=== PATIENT | female | born 1995 | race Caucasian/White ===

== ENCOUNTER 2017-08-02 18:37 | Inpatient (IN) ==
[2017-08-02 15:48] LABS: Amphetamine Screen,Urine Negative ng/mL (Cutoff=1000); Barbiturate Screen,Urine Negative ng/mL (Cutoff=200); Benzodiazepines Screen,Urine Negative ng/mL (Cutoff=200); Cannabinoid Screen,Urine Negative ng/mL (Cutoff = 50); Cocaine Screen,Urine Negative ng/mL (Cutoff= 300); Opiate Screen,Urine Negative ng/mL (Cutoff=300); Phencyclidine Screen,Urine Negative ng/mL (Cutoff=25)
[~2017-08-02 18:37] MED LIST: *HR* Nalbuphine 20 MG/ML AMPUL IVP PRN; Famotidine 20 MG/2 ML VIAL IVP PRN; Metoclopramide 10 MG/2 ML VIAL IVP PRN; Naloxone 0.4 MG/ML INJ IVP PRN
--- NOTE | 2017-08-02 18:37 | OB/GYN History & Physical ---
Date of Encounter: 08/02/17 Time of Encounter: 18:33 Assessment and Plan (1) Spontaneous onset of labor Current visit: Yes Status: Acute Admit to labor and delivery for expectant management -Epidural when requested -GBS negative -anticipate -IV fluids -CLD and ambulate -intermittent monitoring (2) 38 weeks gestation of Current visit: Yes Status: Acute See above History of Present Illness Chief complaint: Contractions HPI: Ms. Mcgrath is a 22 year old female with PMHx of tobacco abuse presents to labor and delivery complaining of vaginal leaking of fluid/discharge. Patient is 38 weeks and 2 days. Patient reports good movement and contractions approximately 5 minutes apart. Patient denies any abdominal pain or painful contractions, however, she states she is feeling "something." Patient is resting comfortably. She denies any headache, RUQ pain, bleeding per vagina, visual disturbances, fever, chills, nausea or vomitting. She denies dysuria or diarrhea. She expresses interest in epidural and admission to the hospital for delivery. Her main complaint is that of heartburn. 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 She sought recovery prior to knowing she was . She has had never had a positive UDS since seeking care. Patient demonstrates continued commitment to recovery. 136/84, 82, 36.5 celsius Baseline FHR 120 15x15 accelerations with moderate variability, Contractions q2- 3 minutes per tocometer O+ GBS negative HCV/HIV negative HSV antibody positive, patient denies any history of break out Rubella Antibody Reactive Past Med Surg Social Fam HX - Past Medical History Attestation: Yes The following information was validated with the patient. 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 ) - Past Surgical History Surgical History: no surgical history - Social History Smoking Status: Current every day smoker Packs per day: 4 cig a day Smokeless Tobacco Status: No Alcohol use: none Drug use: cocaine, marijuana Activity Level: Independent ambulation Recent Out of Country Travel Within the Last 8 Weeks: No - Family History Paternal Grandmother Adopted: No Living Status: Still Living Hx Family Cardiac Disorders: No Hx Family Respiratory Disorders: No Hx Family Cancer: Yes (Breast) Hx Family GI Disorders: No Hx Family Genitourinary Disorders: No Hx Family Endocrine Disorder: No Hx Family Musculoskeletal Disorders: No Hx Family Neuromuscular Disorders: No Hx Family Neurologic Disorders: No Hx Family HEENT Disorders: No Hx Family Autoimmune Disorders: No Hx Family Reproductive Disorders: No Hx Family Psychosocial Disorders: No Hx Family Medical Disorders: No Obstetrical History - Pregnancies : 1 Para: 0 Term: 0 : 0 Ab's: 0 Livin Medications and Allergies Formula Tablet 08/02/17 [History] 3 Allergy/AdvReac Type Severity Reaction Status Date / Time No Known Allergies Allergy Verified 08/02/17 15:48 Review of System OB All systems PM: reviewed and no additional remarkable complaints except as stated - Constitutional Constitutional ROS IM: as per HPI, no anorexia, no chills, no fever(s) - Cardiovascular Cardiovascular: as per HPI, no chest pain, no chest pain at rest, no chest pain with activity, no claudication, no dyspnea on exertion, no lightheadedness, no rapid heart rate - Respiratory Respiratory: as per HPI, no cough, no dyspnea, no dyspnea on exertion - Gastrointestinal Gastrointestinal: as per HPI, heartburn, no abdominal pain, no hematemesis, no hematochezia - Genitourinary Genitourinary: as per HPI, vaginal discharge, no difficulty urinating, no difficulty voiding, no urinary frequency, no urinary urgency Exam - Constitutional Constitutional: well developed, well nourished, no acute distress - HEENT HEENT: Mucus Membranes Moist - Lungs Respiratory exam: CTAB - Cardiovascular Cardiovascular exam: RRR, +S1, +S2 - Abdomen Abdomen: Present: bowel sounds normal, gravid, non tender - Extremities Extremities exam: normal inspection Deep Tendon Reflex Grade: 2+ Normal - Cervix Dilation: 5 (per Wire Puller) Effacement: 70 (per Wire Puller) Station: -1 - Comments Comments: Please see HPI for vitals and NST Results Result Diagrams: 08/02/17 18:55 All other labs normal. - VTE Reasons for not Prescribing Prophylaxis: Treatment not Indicated - Low risk for VTE
[2017-08-02] MEDS ORDERED: Mag Hydrox/Al Hydrox/Simeth 30 ML UDC PO PRN (18:42)
[2017-08-02] MEDS ORDERED: Ringers Solution, Lactated 1,000 ML IVC SCH (18:45)
[2017-08-02 19:09] LABS: Basophils % 0.3 %; Eosinophils # 0.1 K/mcL (0.0-0.6); Eosinophils % 1.1 %; Hematocrit 35.3 % (35.3-44.9); Hemoglobin 12.5 g/dL (11.5-15.4); Immature Granulocytes % 1.3 % (0-4); Lymphocytes # 2.2 K/mcL (0.6-4.6); Lymphocytes % 18.4 %; Mean Corpuscular HGB Conc 35.4 g/dL (31.6-35.5); Mean Corpuscular Hemoglobin 30.8 pg (28.0-33.3); Mean Corpuscular Volume 86.9 fL (83.0-100.0); Monocytes % 8.3 %; Neutrophils # 8.4 K/mcL (1.6-8.9); Platelet Count 180 K/mcL (140-400); Red Blood Count 4.06 M/mcL (3.82-4.97); Red Cell Distribution Width 13.3 % (11.5-14.5); Segmented Neutrophils % 70.6 %
--- NOTE | 2017-08-02 19:46 | Anesthesia Evaluation PreOp ---
Date of Encounter: 08/02/17 Time of Encounter: 19:44 - Past History Planned Operation: LIZ Cardiac History: Denies any Significant Hx Pulmonary History: Smoker (1/2 ppd), Pack/yr (5) BIOSTATISTICS MANAGER History: Seizures (last seizure 10 years) Other Medical History: GERD Anesthesia History: No Prior Anesthetic Complications, Past Anesthesia (wisdom teeth) : Yes Test: Positive Alcohol Use: none Drug use: cocaine (last use november 2016), marijuana Medications and Allergies Formula Tablet 08/02/17 [History] 3 Allergy/AdvReac Type Severity Reaction Status Date / Time No Known Allergies Allergy Verified 08/02/17 15:48 - Meds/Allergy Pre-op Review Medications Reviewed: Yes Allergies Reviewed: Yes Beta Blockers on Current Med List: No Anesthesia Results - Labs 08/02/17 18:55 Anesthesia Exam 120/80 86 16 97.7 fht 120 Height: 5'2" Weight: 72 kg NPO (# of Hours): 3 Pain Scale: 5 Pain Scale Used: Numeric (1 - 10) - HEENT Pupil (Motor): Pupils equal Mallampati: II Teeth: Normal - BIOSTATISTICS MANAGER LOC: Oriented BIOSTATISTICS MANAGER Motor: Normal RUE, Normal LUE, Normal RLE, Normal LLE, Normal Face BIOSTATISTICS MANAGER Sensory: Normal: RUE, LUE, RLE, LLE, Face - Cardiac Rhythm: Regular Murmur: None - Pulmonary Breath Sounds: bilateral Clear Respiratory Effort: Symmetrical Anesthesia Assess/Plan ASA Score: 2 Modified Laila Scale for Level of Consciousness: Cooperative, oriented, and tranquil Anesthetic Plan: Regional Autologous Blood: No Monitoring Plan: Standard Monitors Recovery Plan: Other (risks discussed, questions answered, consented)
[2017-08-02] MEDS ORDERED: *HR* Ropivacaine/PF 0.2% 10 ML AMPUL EP ONE (19:50)
[2017-08-02] MEDS ORDERED: *HR* FentaNYL (PF) 100 MCG/2 ML VIAL EP ONE (19:50)
[2017-08-02] MEDS ORDERED: *HR* FentaNYL (PF) 100 MCG/2 ML VIAL ONE (19:53)
[2017-08-02] MEDS ORDERED: Epidural Premix (fent/bupiv) 110 ML EP ONE (19:53)
[2017-08-02] MEDS ORDERED: *HR* Ropivacaine/PF 0.2% 10 ML AMPUL ONE (19:53)
[2017-08-02] MEDS ORDERED: Epidural Premix (fent/bupiv) 110 ML EP SCH (20:00)
--- NOTE | 2017-08-02 21:37 | Anesthesia Procedures ---
Date of Encounter: 08/02/17 Time of Encounter: 21:35 Procedures: Anesthesia - Epidural/Spinal Patient ID/Chart reviewed: Yes Patient examined: Yes OB Eval: Gestational age: 38.6 OB Eval: : 2 OB Eval: Hx Para: 1 OB Eval: Dilated at (cm): 6 OB Eval: Contractions: Non-stressed pattern Consent Obtained: Yes Supplemental Oxygen: None/Room Air Site Prep: Aseptic Technique, Sterile prep and drape, 0.5% Chlorhexidine/Alcohol Patient position: upright Local Anesthetic: Lidocaine 1% Amount of Local Anesthetic used: 3 Touhy Needle Gauge: 18 Touhy Needle Depth (cm): 7 Catheter Depth at Skin (cm): 15 Test Dose Result: Negative Loading Dose: Fentanyl (mcg): 100 Loading Dose: Other: ropivicaine 0.2% 10cc Loading Dose Administered: Thru Touhy Needle Infusion Med: 0.125% Bupivacaine w/ 2 mcg/ml Fentanyl Infusion Rate (mls/hr): 15 (pcea 5cc q30") Catheter Secured in Place: Tegaderm Interspace Used: L2-L3 Loss of Resistance (CITLALI): Yes Blood: No CSF: No Paresthesia: No Procedure: aseptic, tolerated well, no complications, effective Vitals + FHT's: 122/88 86 16 fht 125
[2017-08-02] MEDS: Ondansetron 4 MG/2 ML VIAL IVP PRN (22:28)
--- NOTE | 2017-08-03 00:11 | OB Labor Progress Note ---
Date of Encounter: 08/03/17 Time of Encounter: 00:09 Labor Progress Note - Subjective Subjective: Patient resting comfortably with epidural in place. AROM 2hours ago. - Vital Signs Vital Signs: 97.7F, 123/70, 81 - Cervix Cervix: 6cm - Heart Tones Heart Tones: FHR 120, 15x15 accelerations with moderate variability. - Table Rock Table Rock: q2-4 minutes. Patient currently in right lateral position, toco not tracing. - Interventions Interventions: Reposition to right lateral with peanut ball in place. - Plan Plan: Continue expectant management.
[2017-08-03 00:33] LABS: Alanine Aminotransferase 17 Units/L (0-55); Aspartate Amino Transferase 20 Units/L (5-34); BUN/Creatinine Ratio 13 (6-26); Blood Urea Nitrogen 9 mg/dL (7-20); Lactate Dehydrogenase 258 Units/L (159-327); Uric Acid 5.1 mg/dL (2.6-6.0); eGFR For African Americans > 60 (> 60); eGFR For Non-African Americans > 60 (> 60)
[2017-08-03] MEDS ORDERED: Epidural Premix (fent/bupiv) 110 ML EP ONE (03:50)
[2017-08-03] MEDS: Ondansetron 4 MG/2 ML VIAL IVP PRN (04:50)
[2017-08-03] MEDS ORDERED: Oxytocin 20 units/ LR 1000 mL 20 UNIT/1,000 ML BAG IVC ONE ×2 (05:04→08:02)
[2017-08-03] MEDS ORDERED: Ibuprofen 600 MG TABLET PO ONE (05:55)
--- NOTE | 2017-08-03 06:08 | OB/GYN Procedure Note ---
Delivery - Delivery Date: 08/03/17 Provider: Lily Lozano ([place], PGY1) Intrapartum events: none Delivery induction: none Delivery augmentation: rupture of membranes Delivery monitor: external FHT, external uterine Anesthesia: epidural Estimated Blood Loss: 200 - Infant (s) Infant A Delivery Date: 08/03/17 Delivery Time: 05:25 Presentation: vertex Position: MARS Route of delivery: Gender: Female Viability: Viable Pounds: 6 Ounces: 4 Weight Gram: 2830 kg at 1 minute: 8 at 5 mins: 9 Shoulder Dystocia: not encountered Specimens collected: cord blood Placenta: spontaneous Cord: 3 umbilical vessels - Repair Episiotomy: none Laceration Description: Superficial (bilateral labial, superficial, hemostatic) - Complications Delivery complications: none Delivery comments: Pt presented in active labor and progressed normally to over intact perineum for viable female weighing 6lbs 4oz with apgars 8at one minute and 9 at five minutes. After a 2 minute delay the cord was clamped and cut and the placenta delivered spontaneous and intact. A thorough examination was performed an no repair was needed. EBL 200ml. Examination of the placenta reveals a marginal cord insertion but the placenta appears intact. Mother and baby stable in kangaroo care following delivery. - Disposition Mom disposition: stable in LDR [place] disposition: stable in LDR
[2017-08-03] MEDS ORDERED: Acetaminophen 325 MG TABLET PO PRN (08:52)
[2017-08-03] MEDS ORDERED: Measles/Mumps/Rubella Vacc 0.5 ML VIAL SQ PRN (08:52)
[2017-08-03] MEDS ORDERED: Benzocaine/Menthol 56 GM AEROSOL SPRAY TP PRN (08:52)
[2017-08-03] MEDS ORDERED: Oxytocin 20 units/ LR 1000 mL 20 UNIT/1,000 ML BAG IVC SCH (08:52)
[2017-08-03] MEDS ORDERED: Lanolin 7 G OINT...G. TP PRN (08:52)
[2017-08-03] MEDS ORDERED: Prenatal Vit/FA 1 EACH TABLET PO SCH (09:00)
[2017-08-03] MEDS: Ibuprofen 600 MG TABLET PO PRN (20:51)
[2017-08-04] MEDS: Ibuprofen 600 MG TABLET PO PRN (03:49)
--- NOTE | 2017-08-04 08:15 | Discharge Summary ---
Date of Encounter: 08/04/17 Time of Encounter: 08:11 - Discharge Diagnosis (1) Normal vaginal delivery Priority: Primary Status: Acute Comments: Continue routine care discharge home today follow up with Dr. Cooper (2) Patient is a currently breast-feeding mother Priority: Secondary Status: Acute Comments: support prn (3) Spontaneous onset of labor Priority: Secondary Status: Acute (4) 38 weeks gestation of Priority: Secondary Status: Acute - Discharge Medications Prescriptions: Ibuprofen [Motrin] 600 mg PO Q6HR PRN #60 tablet PRN Reason: Cramping Breast Pump [BREAST PUMP] 1 each .ROUTE AD #1 each Home Medications: Formula Tablet 08/02/17 [History] Breast Pump [BREAST PUMP] 1 each .ROUTE AD #1 each 08/04/17 [Rx] Docusate [Colace] 100 mg PO BID capsule 08/04/17 [Rx] Ibuprofen [Motrin] 600 mg PO Q6HR PRN #60 tablet 08/04/17 [Rx] Lanolin [Lansinoh] 1 appl TP Q4HR PRN oint...g. 08/04/17 [Rx] Allergies/Adverse Reactions: 3 Allergy/AdvReac Type Severity Reaction Status Date / Time No Known Allergies Allergy Verified 08/02/17 15:48 Data Procedures and tests throughout hospitalization: Laboratory Tests 08/02/17 08/02/17 08/02/17 15:27 18:55 19:21 WBC 11.9 H RBC 4.06 Hgb 12.5 Hct 35.3 MCV 86.9 MCH 30.8 MCHC 35.4 RDW 13.3 Plt Count 180 MPV 12.0 Immature Gran % 1.3 Seg Neutrophils % 70.6 Lymphocytes % 18.4 Monocytes % 8.3 Eosinophils % 1.1 Basophils % 0.3 Neutrophils # 8.4 Lymphocytes # 2.2 Monocytes # 1.0 Eosinophils # 0.1 Basophils # 0.0 BUN Creatinine Est GFR ( Amer) Est GFR (Non-Af Amer) BUN/Creatinine Ratio Uric Acid AST ALT Lactate Dehydrogenase Urine Opiates Screen Negative Ur Barbiturates Screen Negative Ur Phencyclidine Scrn Negative Ur Amphetamines Screen Negative U Benzodiazepines Scrn Negative Urine Cocaine Screen Negative U Marijuana (THC) Screen Negative Hep Bs Antigen Nonreactive 08/02/17 19:21 WBC RBC Hgb Hct MCV MCH MCHC RDW Plt Count MPV Immature Gran % Seg Neutrophils % Lymphocytes % Monocytes % Eosinophils % Basophils % Neutrophils # Lymphocytes # Monocytes # Eosinophils # Basophils # BUN 9 Creatinine 0.68 Est GFR ( Amer) > 60 Est GFR (Non-Af Amer) > 60 BUN/Creatinine Ratio 13 Uric Acid 5.1 AST 20 ALT 17 Lactate Dehydrogenase 258 Urine Opiates Screen Ur Barbiturates Screen Ur Phencyclidine Scrn Ur Amphetamines Screen U Benzodiazepines Scrn Urine Cocaine Screen U Marijuana (THC) Screen Hep Bs Antigen Date of admission: 08/02/17 18:37 Primary care physician: Dolly Villanueva Consults: 08/02/17 18:41 Consult to Sport Shoe Spike Assembler (W&C) [CONS] Routine Reason For Exam: Reason for SW Consult: History of polysubstance abuse 08/03/17 08:52 Consult to Track Helper [CONS] Routine Comment: Vaginal delivery, consult needed Discharging clinician: Milvia Goncalves Anticipated date of discharge: 08/04/17 - Patient Status Disposition: Home, Self-Care Condition: Good Functional capacity at discharge: independent ambulation Overall status at discharge: patient is back to baseline - Discharge Instructions Follow Up With: Dolly Villanueva MD [Primary Care Provider] - - Diet and Activity Activity: increase activity as tolerated Diet: advance to your usual diet Hospital Course Reason for admission: active labor Delivery: Episiotomy: none Laceration: none (Superficial lacerations not requiring repair) Other procedures: none complications: none Discharge diagnosis: IUP at term delivered [place] baby: female Time spent discussing smoking cessation with patient: 3 to 10 minutes Time Attestation: Total time spent providing and/or coordinating discharge services: Time Spent: Less than 30 minutes Exam - Constitutional Vitals: Temp Pulse Resp BP Pulse Ox 97.7 F 73 14 113/72 97 08/04/17 03:10 08/04/17 03:10 08/04/17 03:10 08/04/17 03:10 08/04/17 03:10 General appearance IM: A&O X 3, no acute distress - Respiratory Respiratory exam: Present: CTAB - Cardiovascular Cardiovascular exam IM: Present: RRR, +S1, +S2. Absent: systolic murmur, tachycardia - GI/Abdominal GI/Abdominal exam IM: normal bowel sounds, soft - External exam: normal external exam Uterine Tone: Firm Uterus Position: 1 Finger Below Umbilicus, Midline - Extremities Exam Extremities exam IM: Present: radial pulses palpable and symmetrical. Absent: calf tenderness, pedal edema - Neurological Exam Neurological exam: no focal deficits - Attending Attestation I examined this patient and my medical decision-making was reviewed with the Resident Physician. I agree with the documented findings, disposition and treatment plan as described except to the extent set forth below. YENNY Dasilva
[2017-08-04 08:54] VITALS: BP 106/68
== END 2017-08-04 09:58 | disposition home or self-care (01) | DRG 560 ==
LOC: 1NENULAB → 1NENUOBS 08-03 08:47
PROVIDERS: ADMIT Obstetrics & Gynecology; ATTEND Obstetrics & Gynecology

== ENCOUNTER → 2019-05-01 17:44 | Observation (INO) ==
[2019-05-01 16:13] LABS: Amphetamine Screen,Urine Negative ng/mL (Cutoff=1000); Barbiturate Screen,Urine Negative ng/mL (Cutoff=200); Benzodiazepines Screen,Urine Negative ng/mL (Cutoff=200); Cannabinoid Screen,Urine Negative ng/mL (Cutoff = 50); Cocaine Screen,Urine Negative ng/mL (Cutoff= 300); Opiate Screen,Urine Negative ng/mL (Cutoff=300); Phencyclidine Screen,Urine Negative ng/mL (Cutoff=25)
--- NOTE | 2019-05-01 16:14 | OB/GYN Progress Note ---
Date of Encounter: 05/01/19 Time of Encounter: 16:08 - Assessment and Plan (1) 25 weeks gestation of Current Visit: Yes Status: Acute Urinalysis - contaminated Vaginosis Panel - negative Appropriate FHTs for gestation Discharge home with PTL precautions Follow up in office as scheduled and PRN POC per consult with Dr Perez Subjective - Subjective Principal diagnosis: Vaginal discharge Interval history: Ms Mcgrath is a at 25 weeks and 2 days that presents to triage with c/o leaking fluid that began last night after work. She states the fluid is clear and odorless. She denies intercourse and submerging in water in the past 48 hours. She is seen by Dr Cooper for her care. She has had an uncomplicated course and her previous was normal per patient report (vaginal delivery without complications). She denies headaches, vision changes, epigastric pain, vaginal bleeding, and cramping/contractions. Antepartum ROS: movement normal, no new complaints Objective - Vital Signs Vital Signs: Intake and Output 05/01/19 05/01/19 05/01/19 07:59 15:59 23:59 Other: Weight 72.9 kg Patient Weight 05/01/19 23:59 Weight 72.9 kg - Exam FHR: auscultation normal FHR comments: Appropriate for gestation. 160 baseline. No contractions per toco or palpation. Abdomen: Present: normal appearance, soft, gravid. Absent: tenderness Uterus: Present: normal. Absent: firm, tenderness Cervical dilation: closed Cervix effacement: thick station: high Comments: Fern negative nitrazine negative pooling negative; green mucous on cervix
[2019-05-01 16:29] LABS: Bacteria,Urine Moderate per hpf (None-Few); Bilirubin,Urine Negative (Negative); Blood,Urine Negative (Negative); Clarity,Urine Cloudy (Clear); Color,Urine Yellow (Yellow); Glucose,Urine (UA) Normal (Normal); Hyaline Casts,Urine None Seen per lpf (None-Few); Ketones,Urine Negative (Negative); Leukocyte Esterase,Urine Moderate (Negative); Nitrite,Urine Negative (Negative); PH,Urine 6.5 pH Units (5.0-8.0); Protein,Urine Negative (Neg-Trace); Specific Gravity,Urine 1.028 (1.010-1.025); Squamous Epithelial Cell,Urine Many per lpf (None-Few); Urobilinogen,Urine Normal (Normal); WBC,Urine 30-50 per hpf (0-3)
[2019-05-01 16:46] LABS: RBC,Urine 0-3 per hpf (0-3)
[2019-05-01 17:24] LABS: Candida DNA Not Detected (Not Detect); Gardnerella DNA Not Detected (Not Detect); Trichomonas DNA Not Detected (Not Detect)
== END | disposition home or self-care (01) ==
LOC: 1NENULAB
PROVIDERS: ADMIT Advanced Practice Midwife; ATTEND Advanced Practice Midwife

== ENCOUNTER → 2019-07-01 02:02 | Observation (INO) ==
[2019-06-30 23:53] LABS: Bilirubin,Urine Negative (Negative); Blood,Urine Negative (Negative); Clarity,Urine Clear (Clear); Color,Urine Yellow (Yellow); Glucose,Urine (UA) Normal (Normal); Ketones,Urine 40 mg/dL (Negative); Leukocyte Esterase,Urine Negative (Negative); Nitrite,Urine Negative (Negative); Protein,Urine Negative (Neg-Trace); Specific Gravity,Urine 1.028 (1.010-1.025); Urobilinogen,Urine Normal (Normal)
[2019-07-01 00:04] LABS: Amphetamine Screen,Urine Negative ng/mL (Cutoff=1000); Barbiturate Screen,Urine Negative ng/mL (Cutoff=200); Benzodiazepines Screen,Urine Negative ng/mL (Cutoff=200); Cannabinoid Screen,Urine Negative ng/mL (Cutoff = 50); Cocaine Screen,Urine Negative ng/mL (Cutoff= 300); Opiate Screen,Urine Negative ng/mL (Cutoff=300); Phencyclidine Screen,Urine Negative ng/mL (Cutoff=25)
[~2019-07-01 02:02] MED LIST changes: -*HR* Nalbuphine 20 MG/ML AMPUL IVP PRN; +FLU Vac QV 19-20 (6Month+)/PF 0.5 ML SYRINGE IM ONE; -Famotidine 20 MG/2 ML VIAL IVP PRN; -Metoclopramide 10 MG/2 ML VIAL IVP PRN; -Naloxone 0.4 MG/ML INJ IVP PRN
== END | disposition home or self-care (01) ==
LOC: 1NENULAB
PROVIDERS: ADMIT Advanced Practice Midwife; ATTEND Advanced Practice Midwife

== ENCOUNTER → 2019-07-04 16:15 | Observation (INO) ==
[2019-07-04 15:02] LABS: Bilirubin,Urine Negative (Negative); Blood,Urine Negative (Negative); Clarity,Urine Cloudy (Clear); Color,Urine Yellow (Yellow); Glucose,Urine (UA) Normal (Normal); Ketones,Urine Negative (Negative); Leukocyte Esterase,Urine Small (Negative); Nitrite,Urine Negative (Negative); Protein,Urine Trace mg/dL (Neg-Trace); Specific Gravity,Urine 1.022 (1.010-1.025); Urobilinogen,Urine Normal (Normal)
[2019-07-04 15:04] LABS: Bacteria,Urine Few per hpf (None-Few); Hyaline Casts,Urine None Seen per lpf (None-Few); Squamous Epithelial Cell,Urine Many per lpf (None-Few)
[2019-07-04 15:11] LABS: Amphetamine Screen,Urine Negative ng/mL (Cutoff=1000); Barbiturate Screen,Urine Negative ng/mL (Cutoff=200); Benzodiazepines Screen,Urine Negative ng/mL (Cutoff=200); Cannabinoid Screen,Urine Negative ng/mL (Cutoff = 50); Cocaine Screen,Urine Negative ng/mL (Cutoff= 300); Opiate Screen,Urine Negative ng/mL (Cutoff=300); Phencyclidine Screen,Urine Negative ng/mL (Cutoff=25)
[2019-07-04 15:16] LABS: Amorphous Sediment,Urine Few (Few); RBC,Urine 0-3 per hpf (0-3)
[~2019-07-04 16:15] MED LIST changes: -FLU Vac QV 19-20 (6Month+)/PF 0.5 ML SYRINGE IM ONE; +Ringers Solution, Lactated 1,000 ML IVC SCH
== END | disposition home or self-care (01) ==
LOC: 1NENULAB
PROVIDERS: ADMIT Advanced Practice Midwife; ATTEND Advanced Practice Midwife

== ENCOUNTER → 2019-07-07 22:09 | Observation (INO) ==
[2019-07-07 20:27] LABS: Bilirubin,Urine Negative (Negative); Blood,Urine Negative (Negative); Clarity,Urine Clear (Clear); Color,Urine Yellow (Yellow); Glucose,Urine (UA) Normal (Normal); Ketones,Urine 15 mg/dL (Negative); Leukocyte Esterase,Urine Negative (Negative); Nitrite,Urine Negative (Negative); Protein,Urine Negative (Neg-Trace); Specific Gravity,Urine 1.025 (1.010-1.025); Urobilinogen,Urine Normal (Normal)
[2019-07-07 20:34] LABS: Amphetamine Screen,Urine Negative ng/mL (Cutoff=1000); Barbiturate Screen,Urine Negative ng/mL (Cutoff=200); Benzodiazepines Screen,Urine Negative ng/mL (Cutoff=200); Cannabinoid Screen,Urine Negative ng/mL (Cutoff = 50); Cocaine Screen,Urine Negative ng/mL (Cutoff= 300); Opiate Screen,Urine Negative ng/mL (Cutoff=300); Phencyclidine Screen,Urine Negative ng/mL (Cutoff=25)
== END | disposition home or self-care (01) ==
LOC: 1NENULAB
PROVIDERS: ADMIT Advanced Practice Midwife; ATTEND Advanced Practice Midwife

== ENCOUNTER 2019-07-18 19:11 | Inpatient (IN) ==
[2019-07-18 19:35] LABS: Bilirubin,Urine Negative (Negative); Blood,Urine Negative (Negative); Clarity,Urine Clear (Clear); Color,Urine Yellow (Yellow); Glucose,Urine (UA) Normal (Normal); Ketones,Urine Negative (Negative); Leukocyte Esterase,Urine Negative (Negative); Nitrite,Urine Negative (Negative); PH,Urine 6.5 pH Units (5.0-8.0); Protein,Urine Negative (Neg-Trace); Urobilinogen,Urine Normal (Normal)
[2019-07-18 19:42] LABS: Amphetamine Screen,Urine Negative ng/mL (Cutoff=1000); Barbiturate Screen,Urine Negative ng/mL (Cutoff=200); Benzodiazepines Screen,Urine Negative ng/mL (Cutoff=200); Cannabinoid Screen,Urine Negative ng/mL (Cutoff = 50); Cocaine Screen,Urine Negative ng/mL (Cutoff= 300); Opiate Screen,Urine Negative ng/mL (Cutoff=300); Phencyclidine Screen,Urine Negative ng/mL (Cutoff=25)
[2019-07-18] MEDS ORDERED: *HR* Nalbuphine 10 MG/ML AMPUL IVP PRN (20:17)
[2019-07-18] MEDS ORDERED: Lidocaine 1% 20 ML MDV INFILT PRN (20:17)
[2019-07-18] MEDS ORDERED: Metoclopramide 10 MG/2 ML VIAL IVP PRN (20:17)
[2019-07-18] MEDS ORDERED: Ondansetron 4 MG/2 ML VIAL IVP PRN (20:17)
[2019-07-18] MEDS ORDERED: Famotidine 20 MG/2 ML VIAL IVP PRN (20:17)
[2019-07-18] MEDS ORDERED: Naloxone 0.4 MG/ML INJ IVP PRN (20:17)
[2019-07-18] MEDS ORDERED: Ringers Solution, Lactated 1,000 ML IVC SCH (20:30)
[2019-07-18 20:43] LABS: Basophils % 0.3 %; Eosinophils # 0.2 K/mcL (0.0-0.6); Eosinophils % 1.7 %; Hemoglobin 12.3 g/dL (11.5-15.4); Lymphocytes % 21.1 %; Mean Corpuscular HGB Conc 35.1 g/dL (31.6-35.5); Mean Corpuscular Hemoglobin 30.3 pg (28.0-33.3); Mean Corpuscular Volume 86.2 fL (83.0-100.0); Mean Platelet Volume 12.2 fL (9.4-12.4); Monocytes # 0.8 K/mcL (0.0-1.3); Monocytes % 8.4 %; Neutrophils # 6.4 K/mcL (1.6-8.9); Platelet Count 168 K/mcL (140-400); Red Blood Count 4.06 M/mcL (3.82-4.97); Red Cell Distribution Width 13.3 % (11.5-14.5); Segmented Neutrophils % 67.5 %; White Blood Count 9.4 K/mcL (4.3-11.1)
[2019-07-18] MEDS ORDERED: Epidural Premix (fent/bupiv) 110 ML EP SCH (21:00)
[2019-07-19] MEDS ORDERED: Oxytocin 20 units/ LR 1000 mL 20 UNIT/1,000 ML BAG IVC ONE ×2 (01:21→06:13)
[2019-07-19] MEDS ORDERED: *HR* FentaNYL (PF) 100 MCG/2 ML VIAL ONE (01:47)
[2019-07-19] MEDS ORDERED: Oxytocin 20 units/ LR 1000 mL 20 UNIT/1,000 ML BAG IVC SCH (06:13)
[2019-07-19] MEDS ORDERED: Acetaminophen 325 MG TABLET PO PRN (06:13)
[2019-07-19] MEDS ORDERED: Benzocaine/Menthol 56 GM AEROSOL SPRAY TP PRN (06:13)
[2019-07-19] MEDS: Prenatal Vit/FA 1 EACH TABLET PO SCH (08:23)
[2019-07-19] MEDS: Ibuprofen 600 MG TABLET PO PRN (17:34)
[2019-07-20 09:41] VITALS: BP 118/76
[2019-07-20] MEDS: Ibuprofen 600 MG TABLET PO PRN (11:31)
[2019-07-20] MEDS: Prenatal Vit/FA 1 EACH TABLET PO SCH (11:31)
== END 2019-07-20 11:34 | disposition home or self-care (01) | DRG 807 ==
LOC: 1NENULAB → 1NENUOBS 07-19 06:13
PROVIDERS: ADMIT Advanced Practice Midwife; ATTEND Advanced Practice Midwife

== ENCOUNTER 2021-02-03 23:05 | Observation (INO) ==
[2021-02-03 23:39] LABS: Bilirubin,Urine Negative (Negative); Blood,Urine Trace (Negative); Clarity,Urine Turbid (Clear); Color,Urine Light-Yellow (Yellow); Glucose,Urine (UA) Normal (Normal); Ketones,Urine Negative (Negative); Leukocyte Esterase,Urine Trace (Negative); Nitrite,Urine Negative (Negative); Protein,Urine Trace mg/dL (Neg-Trace); RBC,Urine 0-3 per hpf (0-3); Specific Gravity,Urine 1.026 (1.010-1.025); Squamous Epithelial Cell,Urine Many per hpf (None-Few); Urobilinogen,Urine Normal (Normal); WBC,Urine 0-3 per hpf (0-3)
[2021-02-04] MEDS ORDERED: Ondansetron 4 MG/2 ML VIAL IVP ONE (01:20)
[2021-02-04] MEDS ORDERED: 0.9 % Sodium Chloride 1,000 ML IVC ONE (01:20)
[2021-02-04 01:29] LABS: Basophils # 0.1 K/mcL (0.0-0.2); Basophils % 0.6 %; Eosinophils # 0.2 K/mcL (0.0-0.6); Eosinophils % 1.7 %; Hematocrit 41.4 % (35.3-44.9); Hemoglobin 14.1 g/dL (11.5-15.4); Immature Granulocytes % 0.6 % (0-4); Lymphocytes # 2.5 K/mcL (0.6-4.6); Lymphocytes % 28.6 %; Mean Corpuscular HGB Conc 34.1 g/dL (31.6-35.5); Mean Corpuscular Hemoglobin 31.1 pg (28.0-33.3); Mean Corpuscular Volume 91.4 fL (83.0-100.0); Mean Platelet Volume 10.8 fL (9.4-12.4); Monocytes # 0.7 K/mcL (0.0-1.3); Monocytes % 7.9 %; Neutrophils # 5.3 K/mcL (1.6-8.9); Platelet Count 202 K/mcL (140-400); Red Blood Count 4.53 M/mcL (3.82-4.97); Red Cell Distribution Width 12.2 % (11.5-14.5); Segmented Neutrophils % 60.6 %; White Blood Count 8.7 K/mcL (4.3-11.1)
[2021-02-04 01:53] LABS: Alanine Aminotransferase 42 Units/L (7-52); Albumin 4.4 g/dL (3.5-5.7); Albumin/Globulin Ratio 1.6 (1.1-2.2); Alkaline Phosphatase 64 Units/L (34-104); Aspartate Amino Transferase 31 Units/L (13-39); BUN/Creatinine Ratio 14 (6-26); Bilirubin,Direct 0.1 mg/dL (0.0-0.2); Bilirubin,Indirect 0.4 mg/dL (0.0-1.0); Bilirubin,Total 0.5 mg/dL (0.3-1.0); Blood Urea Nitrogen 12 mg/dL (6-20); Calcium 9.3 mg/dL (8.6-10.3); Carbon Dioxide 25 mEq/L (23-29); Chloride 105 mEq/L (98-107); Globulin 2.7 g/dL (2.4-3.5); Glucose 91 mg/dL (70-105); Lipase 25 Units/L (11-82); Osmolality,Calculated 287 (280-300); Potassium 3.7 mEq/L (3.5-5.1); Sodium 139 mEq/L (136-145); Total Protein 7.1 g/dL (6.4-8.9); eGFR For African Americans > 60 (> 60); eGFR For Non-African Americans > 60 (> 60)
[2021-02-04] MEDS ORDERED: *HR* FentaNYL (PF) 100 MCG/2 ML VIAL IVP ONE (06:19)
[2021-02-04] MEDS ORDERED: *HR* Metoprolol 5 MG/5 ML VIAL IVP PRN ×2 (07:04→15:22)
[2021-02-04] MEDS ORDERED: Ondansetron 4 MG/2 ML VIAL IVP PRN ×3 (07:04→15:22)
[2021-02-04] MEDS ORDERED: Piperacillin/Tazobactam 3.375 GM in 0.9 % Sodium Chloride Mini Bag 100 ML IVPB SCH ×2 (08:00→16:00)
[2021-02-04] MEDS: Ringers Solution, Lactated 1,000 ML IVC SCH ×2 (08:23→15:33)
[2021-02-04 08:42] LABS: Adenovirus Not Detected (Not Detect); Bordetella Pertussis Not Detected (Not Detect); Chlamydophila pneumoniae Not Detected (Not Detect); Coronavirus 229E Not Detected (Not Detect); Coronavirus HKU1 Not Detected (Not Detect); Coronavirus NL63 Not Detected (Not Detect); Coronavirus OC43 Not Detected (Not Detect); Human Metapneumovirus Not Detected (Not Detect); Human Rhinovirus/Enterovirus Not Detected (Not Detect); Influenza A Subtype 2009 H1 Not Detected (Not Detect); Influenza B Not Detected (Not Detect); Mycoplasma pneumoniae Not Detected (Not Detect); Parainfluenza Virus 1 Not Detected (Not Detect); Parainfluenza Virus 2 Not Detected (Not Detect); Parainfluenza Virus 3 Not Detected (Not Detect); Parainfluenza Virus 4 Not Detected (Not Detect); Respiratory Syncytial Virus Not Detected (Not Detect); SARS-CoV-2 Not Detected (Not Detect)
[2021-02-04] MEDS ORDERED: Pantoprazole 40 MG VIAL IVP SCH (09:00)
[2021-02-04] MEDS: Acetaminophen IV 1,000 MG/100 ML BAG IVPB SCH ×2 (10:13→11:55)
[2021-02-04] MEDS ORDERED: *HR* HYDROmorphone PF 0.5 MG/0.5 ML SYRINGE IVP PRN (11:53)
[2021-02-04] MEDS ORDERED: Acetaminophen IV 0 MG/0 ML BAG IVPB ONE (11:57)
[2021-02-04] MEDS ORDERED: Isovue-300 50ML VIAL ONE (12:08)
[2021-02-04] MEDS ORDERED: *HR* FentaNYL (PF) 100 MCG/2 ML VIAL ONE ×3 (12:14→13:28)
[2021-02-04] MEDS ORDERED: Ondansetron 4 MG/2 ML VIAL ONE (12:15)
[2021-02-04] MEDS ORDERED: *HR* Midazolam HCl 2 MG/2 ML VIAL ONE (12:17)
[2021-02-04] MEDS ORDERED: Lidocaine -MPF 2% 2 ML VIAL ONE (12:34)
[2021-02-04] MEDS ORDERED: *HR* Propofol 200 MG/20 ML VIAL IVP ONE (12:53)
[2021-02-04] MEDS ORDERED: Neostigmine Methylsulfate 3 MG/3 ML SYRINGE ONE (13:03)
[2021-02-04] MEDS ORDERED: Ketorolac 30 MG/ML VIAL ONE (13:04)
[2021-02-04] MEDS ORDERED: Lacri-Lube 3.5 GM TUBE ONE (13:18)
[2021-02-04] MEDS ORDERED: *HR* OxyCODONE Immed Rel 5 MG TABLET PO PRN (14:02)
[2021-02-04 15:46] VITALS: BP 123/86
[2021-02-04] MEDS ORDERED: Acetaminophen IV 1,000 MG/100 ML BAG IVPB SCH (18:00)
[2021-02-05] MEDS ORDERED: Pantoprazole 40 MG VIAL IVP SCH (09:00)
== END 2021-02-04 18:19 | disposition home or self-care (01) ==
LOC: EMEROOARM 23:05 → 3BNU 23:05
PROVIDERS: ADMIT Student in an Organized Health Care Education/Training Program; ATTEND Surgery